=== PATIENT | female | born 1955 | race Caucasian/White ===

== ENCOUNTER 2016-05-15 07:44 | Emergency (ER) | payer OTHER, MEDICARE ==
[~2016-05-15] VITALS: Ht 167.6 cm; Wt 74.8 kg
[~2016-05-15 07:44] MED LIST: ALBUTEROL0.09 MG/A1 INH; ALTACE5 M2 PO; ALTOPREV PO; AMOXIL 875 MG875 MG PO; ATIVAN1 MG PO; LEVAQUIN500 MG PO; LEVEMIR FL100 UNIT/1 SC; METFORMIN HCL1000 M2 PO; METHIMAZOLE5 M1 PO; OMNARIS12.5 GM NAS; OXYCODONE5 MG PO; PANTOPRAZOLE SO40 M1 PO; PREDNISONE 10MG10 M1 PO; PREDNISONE20 MG PO; SANDOSTATIN50 MCG/ML IM; TESSALON PERLE100 MG PO; XOPENEX HFA15 GM INH
--- NOTE | 2016-05-15 08:22 | ED SKIN/ALLERGY COMPLAINT ---
History of Present Illness General Chief Complaint: Skin Rash/ Abcess Stated Complaint: HIVES Source: patient Exam Limitations: no limitations Vital Signs & Intake/Output Vital Signs & Intake/Output Vital Signs Date Time Temp Pulse Resp B/P Pulse O2 O2 Flow FiO2 Ox Delivery Rate 05/15 0751 97.4 85 16 156/78 987 Room Air Allergies Coded Allergies: MDX - Cephalosporin (CEPHALOSPORIN) (Severe, ANAPHYLAXIS 10/04/14) Reconcile Medications Ciclesonide (Omnaris) 50 MCG SPRAY.PUMP 2 SPRAY FREDY PRN SINUSES (Reported) Hydroxyzine Pamoate (Vistaril) 50 MG CAPSULE 1 CAP PO TID PRN URTICARIA Insulin Detemir (Levemir Flextouch) 100 UNIT/ML (3 ML) INSULN.PEN 14 UNITS SC QAM DIABETES (Reported) Levalbuterol Tartrate (Xopenex HFA) 45 MCG/ACTUATION HFA.AER.AD 2 PUF INH Q4-6 PRN PRN ASTHMA (Reported) Levofloxacin (Levaquin) 500 MG TABLET 1 TAB PO QDAY BRONCHITIS Lorazepam (Ativan) 1 MG TAB 1 TAB PO PRN ANXIETY (Reported) Lovastatin (Mevacor) 20 MG TABLET 60 MG PO QPM CHOLESTEROL (Reported) METFORMIN HCL (Metformin HCl ER) 1,000 MG TAB.ER.24 1.5 TAB PO AD DIABETES ( Reported) Methimazole 5 MG TABLET 0.5 TAB PO DAILY THYROID (Reported) Octreotide Acetate (Sandostatin) (Unknown Strength) AMPUL (Unknown Dose) IM Q30D CANCER-NEUROENDOCRINE (Reported) Oxycodone Hydrochloride (Oxycodone) 5 MG TAB 2-3 TAB PO QPM PAIN (Reported) Pantoprazole Sodium 40 MG TABLET.DR 1 TAB PO QPM GI (Reported) Prednisone 20 MG TABLET 2 TAB PO QDAY BRONCHITIS Ramipril (Altace) 5 MG CAPSULE 1 CAP PO DAILY PROTECT KIDNEYS (Reported) Triage Note: PT STATES SHE HAS CA AND DR. APODACA TOLD HER THAT "IT'S LIKE SHE IS ALLERGIC TO HERSELF". PT STATES SHE NOTICES SHE HAD HIVES THIS AM AND SHE HAS BEEN PUTTING CORTISONE CREAM ON IT FOR THE PAST WEEK. PT STATES SHE DOES HAVE ANAPHALACSIS AT TIMES. PT HAS NO DIFFICULTY BREATHING AT THIS TIME. PT STATES SHE TOOK BENADRYL LAST NIGHT PRIOR TO GOING TO BED AND STATES THIS AM THE HIVES GOT WORSE. Triage Nurses Notes Reviewed? 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 She states this morning she was worried she might develop anaphylaxis. She states she took Benadryl last night which helped with the itching but the hives are still there. She saw her oncologist Dr. Larkin in the office last week and he told her it was part of her cancer diagnosis to have reactions like this. She states that she also had an episode of coughing up green phlegm is worried that she might develop pneumonia. Patient is still an active daily smoker. Past History Travel History Traveled to [place] past 21 day No Medical History Any Pertinent Medical History? 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 No Review of Systems Review of Systems Constitutional: Denies: chills, fever. EENTM: Denies: throat pain. Respiratory: Reports: short of breath. Denies: cough. Cardiovascular: Denies: chest pain, palpitations, peripheral edema. GI: Denies: abdominal pain, diarrhea, vomiting. Genitourinary: Reports: no symptoms. Musculoskeletal: Reports: no symptoms. Skin: Reports: rash. Neurological/Psychological: Reports: anxiety. Hematologic/Endocrine: Denies: bruising, bleeding, polyuria, polydipsia. Immunologic/Allergic: Denies: splenectomy. All Other Systems: Reviewed and Negative Physical Exam Physical Exam General Appearance: well developed/nourished, alert, awake, anxious, mild distress Head: atraumatic Eyes: Bilateral: PERRL, EOMI. Ears, Nose, Throat: normal pharynx, normal ENT inspection, hearing grossly normal Neck: normal inspection, supple Respiratory: normal breath sounds Cardiovascular: regular rate/rhythm Peripheral Pulses: 2+ radial (R), 2+ radial (L) Gastrointestinal: soft, non-tender Back: normal inspection Extremities: normal inspection, normal range of motion, no edema Neurologic/Psych: awake, alert, oriented x 3, normal mood/affect Skin: intact, normal color, warm/dry, rash Skin Problem Location: torso Skin Problem Character: urticarial Lymphatic: no anterior cervical steve Progress Differential Diagnosis: allergic reaction, SIDE EFFECTS OF CANCER TREATMENTS Plan of Care: Orders Procedure Date/time Status XRY-CHEST XRAY, PA AND LATERAL 05/15 820 Active Diagnostic Imaging: Viewed by Me: Radiology Read. Discussed w/RAD: Radiology Read. Comments: PATIENT: TOMER PETERS PRESENT AGE: 61 PATIENT ACCOUNT NO: [id number] : 55 LOCATION: [facility] ORDERING PHYSICIAN: KANU PADILLA MD SERVICE DATE: 05/15/16 EXAM TYPE: RAD - XRY-CHEST XRAY, PA AND LATERAL EXAMINATION: XR CHEST CLINICAL INFORMATION: Cough, green sputum. History of neuroendocrine cancer. Rule out pneumonia. COMPARISON: 10/04/2014. TECHNIQUE: PA and lateral views of the chest were obtained. FINDINGS: The cardiac and mediastinal silhouettes are normal in appearance. There is mild peribronchial thickening. The lungs and pleural spaces are clear. Left cervical rib is redemonstrated synostosis to the left first thoracic rib. IMPRESSION: No acute cardiopulmonary abnormalities demonstrated. DICTATED BY: BRUCE GARCIA MD DATE/TIME DICTATED:05/15/16851 CUT ROLL MACHINE OFFBEARER:CORRINE DATE/TIME TRANSCRIBED:05/15/16851 CONFIDENTIAL, DO NOT COPY WITHOUT APPROPRIATE AUTHORIZATION. <Electronically signed in Other Vendor System> SIGNED BY: BRUCE GARCIA MD 05/15/16857 Departure Departure Time of Disposition: 937 Disposition: HOME OR SELF CARE Condition: Stable Clinical Impression Primary Impression: Urticaria Referrals: ANUM DESAI MD (PCP/Family) Referred to [facility] as new patient No Additional Instructions: Take the Atarax as directed. Follow-up with your oncologist in the office. Return to ER as needed. Your chest x-ray was normal. Please stop smoking. Departure Forms: Customer Survey General Discharge Information Prescriptions: Current Visit Scripts Hydroxyzine Pamoate (Vistaril) 1 CAP PO TID PRN URTICARIA #30 CAP
--- NOTE | 2016-05-15 08:58 | RADIOLOGY REPORT ---
EXAMINATION: XR CHEST CLINICAL INFORMATION: Cough, green sputum. History of neuroendocrine cancer. Rule out pneumonia. COMPARISON: 10/04/2014. TECHNIQUE: PA and lateral views of the chest were obtained. FINDINGS: The cardiac and mediastinal silhouettes are normal in appearance. There is mild peribronchial thickening. The lungs and pleural spaces are clear. Left cervical rib is redemonstrated synostosis to the left first thoracic rib. IMPRESSION: No acute cardiopulmonary abnormalities demonstrated.
[2016-05-15] MEDS ORDERED: VISTARIL50 M1 PO (09:39)
[2016-05-15 09:43] VITALS: BP 136/84
== END 2016-05-15 10:03 ==
LOC: ERH 07:44
DX: L50.9 Urticaria, unspecified (principal)

== ENCOUNTER 2016-09-30 20:11 | Emergency (ER) | payer OTHER, MEDICARE ==
[~2016-09-30 20:11] MED LIST changes: +VISTARIL50 M1 PO
--- NOTE | 2016-09-30 20:15 | ED INFLUENZA/URI COMPLAINT ---
History of Present Illness General Chief Complaint: Dyspnea (COPD, CHF, Other) Stated Complaint: BIBA SOB W/ CONGESTION Source: patient, family, old records Exam Limitations: no limitations Vital Signs & Intake/Output Vital Signs & Intake/Output Vital Signs Date Time Temp Pulse Resp B/P B/P Pulse O2 O2 Flow FiO2 Mean Ox Delivery Rate 09/30 2252 98.0 82 18 118/84 97 Room Air 10/01 2039 97 09/30 2029 98 Room Air 09/30 2025 97.9 84 16 156/74 98 Room Air Allergies Coded Allergies: Cephalosporins (Severe, ANAPHYLAXIS 09/30/16) Reconcile Medications Alprazolam (Xanax XR) 0.5 MG TAB.ER.24H 1 TAB PO TID PRN ANXIETY (Reported) Canagliflozin (Invokana) 100 MG TABLET 1 TAB PO DAILY DM (Reported) Ciclesonide (Omnaris) 50 MCG SPRAY.PUMP 2 SPRAY FREDY PRN SINUSES (Reported) Clotrimazole 10 MG KARLENE 1 TAB PO 5 TIMES A DAY PRN THRUSH (Reported) Epinephrine (Epipen) 0.3 MG/0.3 ML AUTO.INJCT 1 UNIT IM ONCE PRN ANAPHYLAXIS (Reported) Fluticasone Propionate 50 MCG/ACTUATION SPRAY.SUSP 2 SPRAY NASB DAILY ASTHMA (Reported) Hydroxyzine HCl 10 MG TABLET 1 TAB PO DAILY (Reported) Insulin Detemir (Levemir Flextouch) 100 UNIT/ML (3 ML) INSULN.PEN 14 UNITS SC QAM DM (Reported) Levalbuterol Tartrate (Xopenex Hfa) 45 MCG/ACTUATION HFA.AER.AD 2 PUF INH Q4-6 PRN PRN ASTHMA (Reported) Loratadine (Claritin) 10 MG CAPSULE 1 TAB PO TID ALLERGIES (Reported) Lovastatin (Altoprev) 60 MG TAB.ER.24H 1 TAB PO QPM CHOLESTEROL (Reported) Metformin HCl (Metformin HCl ER) 1,000 MG TAB.ER.24 1 TAB PO DAILY DM ( Reported) Methimazole 5 MG TABLET 0.5 TAB PO DAILY THYROID (Reported) Methylprednisolone. (Medrol) 4 MG TAB.DS.PK 1 DP PO AD INFLAMMATION 6 on day 1 then reduce by one tablet daily until gone Pantoprazole Sodium 40 MG TABLET.DR 1 TAB PO QPM GI (Reported) Ramipril (Altace) 5 MG CAPSULE 1 CAP PO DAILY PROTECT KIDNEYS (Reported) Triage Nurses Notes Reviewed? yes Onset: Abrupt Duration: intermittent Timing: multiple episodes today Severity: severe Severity Numbers: 7 HPI: Patient is a 61-year-old female with past medical history of diabetes, hyperthyroidism, hyperlipidemia, anxiety, asthma, allergies, neuro endocrine carcinoma who presents emergency room and was today patient woke up in her normal state of health and wished this morning patient had acute onset of heart palpitations would made patient anxious and short of breath patient took treatments of albuterol puffer and had complete resolution of symptoms. Patient states that she was outside all day however 2 hours prior to arrival patient had acute onset of again heart palpitations which made patient anxious and short of breath patient also felt chest congestion and head congestion and allergy like symptoms where she was brought in by ambulance. Patient is ever day smoker. Denies any fevers chills chest pain arm pain jaw pain nausea vomiting leg swelling hemoptysis. (SUNI BARBOUR) Past History Travel History Traveled to [place] past 21 day No Medical History Any Pertinent Medical History? 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 No (SUNI BARBOUR) Review of Systems Review of Systems Constitutional: Denies: chills, fever. EENTM: Reports: no symptoms. Respiratory: Reports: see HPI, short of breath. Cardiovascular: Reports: see HPI, palpitations. Denies: chest pain. GI: Reports: no symptoms. Genitourinary: Reports: no symptoms. Musculoskeletal: Reports: no symptoms. Skin: Reports: no symptoms. Neurological/Psychological: Reports: no symptoms. Hematologic/Endocrine: Reports: no symptoms. Immunologic/Allergic: Reports: no symptoms. All Other Systems: Reviewed and Negative (SUNI BARBOUR) Physical Exam Physical Exam General Appearance: anxious Ears, Nose, Throat: normal ENT inspection, moist mucous membrane, hearing grossly normal Comments: HEENT: Normal EENT exam, extraocular motion intact, no nystagmus. Pupils equally round and reactive to light and accommodation. Nose is atraumatic. External auditory canal and Tympanic membranes clear. Pharynx normal. No swelling or edema. Neck: Supple, no lymphadenopathy, normal range of motion without pain or tenderness Back: Nontender, no CVA tenderness. Cardiovascular: Regular rate and rhythms no murmurs rubs or gallops, normal JVP Respiratory: Chest nontender. No respiratory distress. Bilateral mild expiratory wheezing Abdomen: Soft, nontender nondistended, no appreciable organomegaly. Normal bowel sounds. No ascites Extremity: No edema, no calf tenderness to palpation, normal and equal pulses. Neuro: Alert oriented x3, motor sensory normal, cranial nerves II through XII grossly intact. Skin: No appreciable rash on exposed skin, skin is warm and dry. Psych: Mood and affect is normal, memory and judgment is normal. Core Measures Severe Sepsis Present: No Septic Shock Present: No (DINO ELLISON,SUNI) Progress Differential Diagnosis: influenza, meningitis, neutropenia, otitis, pneumonia, pharyngitis, sinusitis Plan of Care: Orders Procedure Date/time Status THYROID STIMULATING HORMONE 09/30 2053 Complete FREE T4 09/30 2053 Complete Telemetry/Airport Representative 09/30 2033 Active TROPONIN LEVEL 09/30 2017 Complete D-DIMER 09/30 2017 Complete COMPREHENSIVE METABOLIC PANEL 09/30 2017 Complete CBC WITHOUT DIFFERENTIAL 09/30 2017 Complete EKG 09/30 2017 Active Laboratory Tests 09/30/162053: Anion Gap 11, Estimated GFR > 60, BUN/Creatinine Ratio 20.0, Glucose 163 H, Calcium 9.6, Total Bilirubin 0.3, AST 17, ALT 18, Alkaline Phosphatase 82, Troponin I < 0.01, Total Protein 7.1, Albumin 4.1, Globulin 3.0, Albumin/ Globulin Ratio 1.4, TSH 0.350, Free T4 1.17, D-Dimer 664 H, CBC w Diff NO MAN DIFF REQ, RBC 4.40, MCV 84.7, MCH 27.5, RDW 15.6 H, MPV 8.1, Gran % 60.2, Lymphocytes % 26.9, Monocytes % 10.8 H, Eosinophils % 1.6, Basophils % 0.5, Absolute Granulocytes 5.9, Absolute Lymphocytes 2.6, Absolute Monocytes 1.1 H, Absolute Eosinophils 0.2, Absolute Basophils 0, PUBS MCHC 32.5 L 09/30/162033: TSH Cancelled, Free T4 Cancelled 09/30/2016 9:19:01 PM after nebulizer was administered patient had complete resolution of wheezing noted on reexamination. Oxygen saturation 99% patient no respiratory distress telemetry monitored noted to be normal sinus rhythm 88 bpm Patient also is resting comfortably no apparent distress When discussing with patient of an elevated d-dimer and CT angiogram she became extremely anxious to have this imaged performance where she was given 1 mg of Ativan. (SUNI BARBOUR) Diagnostic Imaging: Viewed by Me: CT Scan. Initial ED EK BPM, NSR Hand-Off Endorsed To: IVANIA HAYWOOD DO (TBS) Endorsed Time: 2342 Pending: CT Comments: Discussed this with Dr. HAYWOOD for concerns of hand for which patient disposition plan is pending a CT angiogram. Patient currently is resting comfortably in no apparent distress. Patient was strongly advised to discontinue smoking and to follow-up with disposition and plan dictated and discharge instructions (SUNI BARBOUR) Departure Departure Disposition: HOME OR SELF CARE Condition: Stable Clinical Impression Primary Impression: Palpitations Secondary Impressions: COPD (chronic obstructive pulmonary disease) Referrals: IDANIA SCHROEDER,RAINA DESAI MD,ANUM (PCP/Family) JUVENTINO SCHROEDER,YESSI Additional Instructions: As discussed please discontinue smoking. Begin the prescription of Medrol Dosepak for inflammation Continue previous medications especially YOUR breathing medications. On Monday please follow up and establish pharmacist hospital Dr. Panda and grain oilseed or pasture farm worker Dr. Barber for your symptoms. If symptoms worsen return to emergency room Departure Forms: Customer Survey General Discharge Information Prescriptions: Current Visit Scripts Methylprednisolone. (Medrol) 1 DP PO AD #1 DP 6 on day 1 then reduce by one tablet daily until gone (SUNI BARBOUR) Departure Comments 10/01/16 12:12 am The patient was signed out to me by Suni Adrian to follow the CTA. CTA is negative for pulmonary embolism. Liver densities are unchanged. She will follow-up with her primary care doctor this week or return to the emergency department if worse.PATIENT: TOMER PETERS PRESENT AGE: 61 PATIENT ACCOUNT NO: [id number] : 55 LOCATION: [facility] ORDERING PHYSICIAN: SUNI ELLISON SERVICE DATE: 09/30/16 EXAM TYPE: CAT - CTA CHEST-PULMONARY EMBOLISM EXAMINATION: CT ANGIOGRAM CHEST WITH AND WITHOUT CONTRAST (CT PULMONARY ANGIOGRAM FOR PE) CLINICAL INFORMATION: Shortness of breath. Elevated D-dimer. History of cancer. Pulmonary embolism symptoms. COMPARISON: CT chest and abdomen 09/19/2016. Chest x-ray May 2016. TECHNIQUE: Prior to contrast administration, noncontrast localization images were obtained. Subsequently, multidetector volumetric imaging was performed from the thoracic inlet to below the diaphragms following the administration of 50 mL Optiray 350 intravenous contrast. No contrast reaction reported. Sagittal, coronal, and MIP oblique sagittal reformatted images were obtained on the CT workstation, uploaded to PACS, and reviewed. Total exam dose-length product 269 mGy-cm. FINDINGS: QUALITY OF STUDY/CONTRAST BOLUS: Satisfactory PULMONARY ARTERIES: No central or segmental pulmonary emboli. THORACIC AORTA: Mild to moderate calcific atherosclerotic disease. LUNG: Minimal groundglass opacity noted within the medial aspect of the right lobe of the liver seen on axial image 50\E\62 series 3. PLEURA: No pleural effusion or pneumothorax. MEDIASTINUM: Normal heart size. No pericardial effusion. No hilar or mediastinal lymphadenopathy. No evidence of septal bowing or right heart strain. Heterogeneous-appearing thyroid, unchanged. CHEST WALL/AXILLA: No axillary or internal mammary lymphadenopathy. OSSEOUS STRUCTURES: Mild spondylosis of the dorsal spine manifested by endplate osteophyte formation at multiple disc levels. No change. UPPER ABDOMEN: Multiple small hypodense liver lesions noted throughout the visualized portion of the liver, unchanged. The largest cysts in the left lobe also most likely reflect simple cysts. IMPRESSION: 1. No evidence for pulmonary embolism. 2. Minimal groundglass opacity in the medial aspect of the right lower lobe most likely reflects atelectasis rather than an evolving infiltrate or pneumonia. 3. Heterogeneous-appearing thyroid, unchanged. 4. Persistent unchanged multiple low-density lesion is noted throughout much of the liver visualized some of which are too small to clearly characterize. The larger masses do appear to reflect benign simple cysts. DICTATED BY: JESUS TORREZ MD DATE/TIME DICTATED:09/30/162256 MOLD DESIGNER:CORRINE DATE/TIME TRANSCRIBED:09/30/162256 CONFIDENTIAL, DO NOT COPY WITHOUT APPROPRIATE AUTHORIZATION. <Electronically signed in Other Vendor System> SIGNED BY: JESUS TORREZ MD 10/01 0008 (IVANIA HAYWOOD DO)
[2016-09-30] MEDS ORDERED: CLOTRIMAZOLE10 M1 PO (20:31)
[2016-09-30] MEDS ORDERED: EPIPEN0.3 MG/0.1 IM (20:31)
[2016-09-30] MEDS ORDERED: CLARITIN10 M3 PO (20:32)
[2016-09-30] MEDS ORDERED: HYDROXYZINE HCL10 M1 PO (20:33)
[2016-09-30] MEDS ORDERED: FLUTICASONE PRO16 GM NASB (20:33)
[2016-09-30] MEDS ORDERED: XANAX XR0.5 M1 PO (20:35)
[2016-09-30] MEDS ORDERED: INVOKANA100 M1 PO (20:37)
[2016-09-30] MEDS ORDERED: METFORMIN HCL500 M2 PO (20:37)
[2016-09-30 21:05] LABS: ABSOLUTE BASOPHIL COUNT 0 /CUMM (0.0-0.2); ABSOLUTE EOSINOPHIL COUNT 0.2 /CUMM (0.0-0.7); ABSOLUTE GRANULOCYTE CT 5.9 /CUMM (1.4-6.5); ABSOLUTE LYMPH COUNT 2.6 /CUMM (1.2-3.4); ABSOLUTE MONOCYTE COUNT 1.1 /CUMM (0.10-0.60); BASOPHIL % 0.5 % (0.0-2.0); EOSINOPHIL % 1.6 % (0-5); GRANULOCYTE % 60.2 % (42.2-75.2); HEMATOCRIT 37.3 % (37-47); MEAN CORPUSCULAR HGB 27.5 PG (27.0-31.0); MEAN CORPUSCULAR HGB CONC 32.5 G/DL (33.0-37.0); MEAN CORPUSCULAR VOLUME 84.7 FL (81.0-99.0); MEAN PLATELET VOLUME 8.1 FL (7.4-10.4); PLATELET COUNT 304 /CUMM (130-400); RBC DISTRIBUTION WIDTH 15.6 % (11.5-14.5); WHITE BLOOD CELL COUNT 9.8 /CUMM (4.8-10.8)
[2016-09-30 22:53] VITALS: BP 118/84
[2016-09-30] MEDS ORDERED: MEDROL4 M2 PO (23:26)
--- NOTE | 2016-10-01 00:08 | CT SCAN REPORT ---
EXAMINATION: CT ANGIOGRAM CHEST WITH AND WITHOUT CONTRAST (CT PULMONARY ANGIOGRAM FOR PE) CLINICAL INFORMATION: Shortness of breath. Elevated D-dimer. History of cancer. Pulmonary embolism symptoms. COMPARISON: CT chest and abdomen 09/19/2016. Chest x-ray May 2016. TECHNIQUE: Prior to contrast administration, noncontrast localization images were obtained. Subsequently, multidetector volumetric imaging was performed from the thoracic inlet to below the diaphragms following the administration of 50 mL Optiray 350 intravenous contrast. No contrast reaction reported. Sagittal, coronal, and MIP oblique sagittal reformatted images were obtained on the CT workstation, uploaded to PACS, and reviewed. Total exam dose-length product 269 mGy-cm. FINDINGS: QUALITY OF STUDY/CONTRAST BOLUS: Satisfactory PULMONARY ARTERIES: No central or segmental pulmonary emboli. THORACIC AORTA: Mild to moderate calcific atherosclerotic disease. LUNG: Minimal groundglass opacity noted within the medial aspect of the right lobe of the liver seen on axial image 50\E\62 series 3. PLEURA: No pleural effusion or pneumothorax. MEDIASTINUM: Normal heart size. No pericardial effusion. No hilar or mediastinal lymphadenopathy. No evidence of septal bowing or right heart strain. Heterogeneous-appearing thyroid, unchanged. CHEST WALL/AXILLA: No axillary or internal mammary lymphadenopathy. OSSEOUS STRUCTURES: Mild spondylosis of the dorsal spine manifested by endplate osteophyte formation at multiple disc levels. No change. UPPER ABDOMEN: Multiple small hypodense liver lesions noted throughout the visualized portion of the liver, unchanged. The largest cysts in the left lobe also most likely reflect simple cysts. IMPRESSION: 1. No evidence for pulmonary embolism. 2. Minimal groundglass opacity in the medial aspect of the right lower lobe most likely reflects atelectasis rather than an evolving infiltrate or pneumonia. 3. Heterogeneous-appearing thyroid, unchanged. 4. Persistent unchanged multiple low-density lesion is noted throughout much of the liver visualized some of which are too small to clearly characterize. The larger masses do appear to reflect benign simple cysts.
[2016-10-01] MEDS ORDERED: AVELOX400 M1 PO (00:20)
[2016-10-02] MEDS ORDERED: METFORMIN HCL1000 M1 PO (17:40)
[2016-10-02] MEDS ORDERED: REPAGLINIDE0.5 M1 PO (17:40)
[2016-10-02] MEDS ORDERED: ALPRAZOLAM0.5 M4 PO (17:42)
[2016-10-02] MEDS ORDERED: SYMBICORT 16010.2 GM INH (17:45)
== END 2016-10-01 00:53 ==
LOC: ERH 20:11
PROVIDERS: Physician Assistant
DX: J44.9 Chronic obstructive pulmonary disease, unspecified (principal); F17.210 Nicotine dependence, cigarettes, uncomplicated; R06.00 Dyspnea, unspecified
CPT/HCPCS: 1263; 93005; 93010; 96374; 96375; J2930

== ENCOUNTER 2016-10-02 15:27 | Emergency (ER) | payer OTHER, MEDICARE ==
[~2016-10-02] VITALS: Ht 167.6 cm; Wt 71.7 kg
[~2016-10-02 15:27] MED LIST changes: +AVELOX400 M1 PO; +CLARITIN10 M3 PO; +CLOTRIMAZOLE10 M1 PO; +EPIPEN0.3 MG/0.1 IM; +FLUTICASONE PRO16 GM NASB; +HYDROXYZINE HCL10 M1 PO; +INVOKANA100 M1 PO; +MEDROL4 M2 PO; +METFORMIN HCL500 M2 PO; +XANAX XR0.5 M1 PO
--- NOTE | 2016-10-02 16:24 | ED NEURO DEFICIT/STROKE ---
History of Present Illness General Chief Complaint: Neuro Symptoms/ Deficit Stated Complaint: LEFT SIDED FACIAL NUMBNESS Source: patient, family, old records Exam Limitations: no limitations Vital Signs & Intake/Output Vital Signs & Intake/Output ED Intake and Output 10/03 0000 10/02 1200 Intake Total 0 Output Total Balance 0 Intake, Oral 0 Patient 158 lb Weight Weight Reported by Patient Measurement Method Allergies Coded Allergies: Cephalosporins (Severe, ANAPHYLAXIS 10/02/16) Uncoded Allergies: METAL (FLUSH, HIVES 10/02/16) Reconcile Medications Alprazolam 0.5 MG TABLET 1 TAB PO TID ANXIETY (Reported) Budesonide/Formoterol Fumarate (Symbicort 160-4.5 Mcg Inhaler) 160 MCG-4.5 MCG/ ACTUATION HFA.AER.AD 1 PUF INH BID PRN ASTHMA (Reported) Canagliflozin (Invokana) 100 MG TABLET 1 TAB PO DAILY DM (Reported) Ciclesonide (Omnaris) 50 MCG SPRAY.PUMP 2 SPRAY FREDY PRN SINUSES (Reported) Clotrimazole 10 MG KARLENE 1 TAB PO 5 TIMES A DAY PRN THRUSH (Reported) Epinephrine (Epipen) 0.3 MG/0.3 ML AUTO.INJCT 1 UNIT IM ONCE PRN ANAPHYLAXIS (Reported) Fluticasone Propionate 50 MCG/ACTUATION SPRAY.SUSP 2 SPRAY NASB PRN ALLERGIES (Reported) Hydroxyzine HCl 10 MG TABLET 1 TAB PO DAILY ITCHING (Reported) Insulin Detemir (Levemir Flextouch) 100 UNIT/ML (3 ML) INSULN.PEN 14 UNITS SC QAM DM (Reported) Levalbuterol Tartrate (Xopenex Hfa) 45 MCG/ACTUATION HFA.AER.AD 2 PUF INH Q3H PRN ASTHMA (Reported) Loratadine (Claritin) 10 MG CAPSULE 1 TAB PO TID ALLERGIES (Reported) Lovastatin (Altoprev) 60 MG TAB.ER.24H 1 TAB PO QPM CHOLESTEROL (Reported) Metformin HCl (Metformin HCl ER) 1,000 MG TAB.ER.24 1 TAB PO DAILY DM ( Reported) Metformin HCl 1,000 MG TABLET 1 TAB PO QPM DM (Reported) Methimazole 5 MG TABLET 0.5 TAB PO DAILY THYROID (Reported) Methylprednisolone. (Medrol) 4 MG TAB.DS.PK 1 DP PO AD INFLAMMATION 6 on day 1 then reduce by one tablet daily until gone Moxifloxacin HCl (Avelox) 400 MG TABLET 1 TAB PO DAILY bronchitis Pantoprazole Sodium 40 MG TABLET.DR 1 TAB PO QPM GI (Reported) Ramipril (Altace) 5 MG CAPSULE 1 CAP PO DAILY PROTECT KIDNEYS (Reported) Repaglinide 0.5 MG TABLET 1 TAB PO TID DM (Reported) Triage Note: PT TO ED FOR L SIDED FACIAL NUMBNESS/TINGLING THAT STARTED THIS MORNING AROUND 1000, THEN WENT AWAY AND THEN CAME BACK AROUND 1400. PT SEEN IN THIS ED ON MONDAY AND WAS WORKED UP FOR PE WHICH WAS NEGATIVE. PT HX OF NEUROENDOCRINE CANCER, CURRENTLY ON CHEMO. ALL NEUROS INTACT, NO FACIAL DROOP, OR SLURRED SPEECH NOTED. Triage Nurses Notes Reviewed? yes Onset: Abrupt Duration: hour(s):, intermittent Timing: recent history Altered Sensations: left facial Vision Problem? No Glaucoma? No Baseline: alert, oriented x 3 HPI: 61-year-old female comes into emergency room with complaints of left-sided facial numbness is been going on since noon today intermittently. She denies any slurred speech confusion or headache. She denies any numbness or tingling to her left lower leg or left left upper extremity. She says she might have some mild tingling in her left pinky finger. She has no weakness anywhere on her body. She denies any vision changes. Denies any recent falls or trauma. She denies any gait abnormalities. Denies any vomiting fever or chills. Patient was seen here a few nights ago and was put on steroids for possible COPD. Nothing seems to make the symptoms better or worse. Patient comes in for further evaluation. (LOS MACIAS) Past History Travel History Traveled to [place] past 21 day No Medical History Any Pertinent Medical History? 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 No (LOS MACIAS) Review of Systems Review of Systems Constitutional: Reports: no symptoms. EENTM: Reports: no symptoms. Respiratory: Reports: no symptoms. Cardiovascular: Reports: no symptoms. GI: Reports: no symptoms. Genitourinary: Reports: no symptoms. Musculoskeletal: Reports: no symptoms. Skin: Reports: no symptoms. Neurological/Psychological: Reports: see HPI. Hematologic/Endocrine: Reports: no symptoms. Immunologic/Allergic: Reports: no symptoms. All Other Systems: Reviewed and Negative (LOS MACIAS) Physical Exam Physical Exam General Appearance: well developed/nourished, no apparent distress, alert, awake Head: atraumatic, normal appearance Eyes: Bilateral: normal appearance, PERRL, EOMI. Ears, Nose, Throat: normal ENT inspection, moist mucous membrane, hearing grossly normal Neck: normal inspection, full range of motion Respiratory: normal breath sounds, no respiratory distress Cardiovascular: regular rate/rhythm Gastrointestinal: soft, non-tender Back: normal inspection, normal range of motion Extremities: normal range of motion Psychiatric: awake, alert, oriented x 3 Cranial Nerves: normal hearing, normal speech, PERRL, cranial nerves 2-12 intact , gross sensation intact Coordination/Gait: normal finger to nose, normal gait Motor/Sensory: no motor/sensory deficits Skin: intact, normal color Core Measures CVA/TIA Diagnosis: No Severe Sepsis Present: No Septic Shock Present: No (LOS MACIAS) Progress Differential Diagnosis: acute glaucoma, Steele's Palsy, drug intoxication, electrolyte imbalance, encephalitis, hypoglycemia, intracranial Hem., intracranial mass/tumor, meningitis, migraine RENDON, seizure disorder, stroke, subarachnoid Hem., vertebrobasilar insuff. Plan of Care: Orders Procedure Date/time Status TROPONIN LEVEL 10/02 162 Complete LYME TITRE 10/02 162 Active COMPREHENSIVE METABOLIC PANEL 10/02 162 Complete CBC WITHOUT DIFFERENTIAL 10/02 1622 Complete EKG 10/02 162 Active Laboratory Tests 10/02/16 1638: Anion Gap 13, Estimated GFR 46 L, BUN/Creatinine Ratio 22.5, Glucose 158 H, Calcium 9.7, Total Bilirubin 0.4, AST 19, ALT 28, Alkaline Phosphatase 75, Troponin I < 0.01, Total Protein 7.6, Albumin 4.5, Globulin 3.1, Albumin/ Globulin Ratio 1.5, CBC w Diff NO MAN DIFF REQ, RBC 4.24, MCV 84.8, MCH 27.6, RDW 15.9 H, MPV 8.1, Gran % 81.7 H, Lymphocytes % 12.8 L, Monocytes % 5.2, Eosinophils % 0, Basophils % 0.3, Absolute Granulocytes 10.6 H, Absolute Lymphocytes 1.7, Absolute Monocytes 0.7 H, Absolute Eosinophils 0, Absolute Basophils 0, PUBS MCHC 32.6 L, Lyme Disease Antibody Pending Diagnostic Imaging: Viewed by Me: CT Scan. Discussed w/RAD: CT Scan. Radiology Impression: SERVICE DATE: 10/02/16 EXAM TYPE: CAT - CT HEAD WO IV CONTRAST EXAMINATION: CT HEAD WITHOUT CONTRAST CLINICAL INFORMATION: Left facial numbness COMPARISON: None TECHNIQUE: Contiguous axial imaging was performed from the skull base to vertex without intravenous administration of contrast. DLP: 614.97 mGy-cm FINDINGS: There is no evidence of acute intracranial hemorrhage or territorial infarction. No abnormal mass effect or midline shift is seen. Gaytan to white matter differentiation is well preserved. No extra-axial fluid collections are identified. The ventricles are normal in size. There is mild to moderate low-attenuation within the periventricular and subcortical white matter. The latter finding is slightly asymmetric on the right. A small area of low-attenuation is noted within the subcortical white matter of the right frontal lobe measuring 0.8 cm (image 16, series 3). The osseous structures and soft tissues are normal. The mastoid air cells and visualized portions of the paranasal sinuses are well aerated. IMPRESSION: No acute intracranial hemorrhage. Mild to moderate chronic small vessel ischemic change. DICTATED BY: RICCO CULP MD DATE/TIME DICTATED:10/02/161723 WWE WRESTLER:CORRINE Initial ED EKG: normal intervals, normal p-waves, normal sinus rhythm, RBBB Prior EKG: unchanged (LOS MACIAS) Departure Departure Disposition: HOME OR SELF CARE Condition: Stable Clinical Impression Primary Impression: Left facial numbness Referrals: ANUM DESAI MD (PCP/Family) Additional Instructions: Follow-up with your primary care doctor. Follow-up with neurologist. Have your creatinine rechecked. Return if any concerns worsening symptoms. Please go over all results of today's visit with your primary care doctor. Contact your primary care doctor to let them know you were here in the emergency room. There may be nonspecific findings which may not be related to your visit today here in the emergency room but may require further evaluation and chronic monitoring by your primary care doctor. If you had a laceration today the chance of foreign body always remains. You should follow-up with your primary care doctor for recheck in 3-5 days for a wound check. If you had an x-ray done there is a chance that a fracture could have been missed on initial read and you should follow-up with your primary care doctor for repeat x-rays if symptoms persist. If your blood pressure was elevated here in the emergency room please have rechecked by her primary care doctor within the next 48 hours by your primary care doctor. If you were prescribed a narcotic here in the emergency room or any type of controlled substances you're not allowed to drive while taking this medication or operate any type of heavy machinery. Narcotics can make you feel lightheaded dizziness nausea and can cause constipation. You may need to warehouse order picker a stool softener. Thank you for choosing [facility] emergency room. Please return to the emergency room immediately if you have any other concerns worsening of symptoms. Departure Forms: Customer Survey General Discharge Information Comments Patient clinically looks well. Nontoxic-appearing. In no apparent distress. Resting comfortably in room. Case discussed with Dr. Ornelas. Reevaluated multiple times. No neurological deficits. Gross sensation intact. Patient referred to neurologist. Lyme titer sent. Patient told to follow-up with primary care doctor. Return if any other concerns. Patient understands and agrees with plan of care. (BIJAL ELLISON,LOS) PA/BATTER OUT Co-Sign Statement Statement: ED Attending supervision documentation- [] I saw and evaluated the patient. I have also reviewed all the pertinent lab results and diagnostic results. I agree with the findings and the plan of care as documented in the PA's/BATTER OUT's documentation. [X] I have reviewed the ED Record and agree with the PA's/BATTER OUT's documentation. [] Additions or exceptions (if any) to the PAs/BATTER OUT's note and plan are summarized below: [] (CECILY SCHROEDER,NATANAEL Gomez)
[2016-10-02 17:06] LABS: ABSOLUTE BASOPHIL COUNT 0 /CUMM (0.0-0.2); ABSOLUTE EOSINOPHIL COUNT 0 /CUMM (0.0-0.7); ABSOLUTE GRANULOCYTE CT 10.6 /CUMM (1.4-6.5); ABSOLUTE LYMPH COUNT 1.7 /CUMM (1.2-3.4); ABSOLUTE MONOCYTE COUNT 0.7 /CUMM (0.10-0.60); BASOPHIL % 0.3 % (0.0-2.0); EOSINOPHIL % 0 % (0-5); GRANULOCYTE % 81.7 % (42.2-75.2); HEMATOCRIT 35.9 % (37-47); MEAN CORPUSCULAR HGB 27.6 PG (27.0-31.0); MEAN CORPUSCULAR HGB CONC 32.6 G/DL (33.0-37.0); MEAN CORPUSCULAR VOLUME 84.8 FL (81.0-99.0); MEAN PLATELET VOLUME 8.1 FL (7.4-10.4); PLATELET COUNT 331 /CUMM (130-400); RBC DISTRIBUTION WIDTH 15.9 % (11.5-14.5); RED BLOOD CELL CT 4.24 /CUMM (4.20-5.40)
--- NOTE | 2016-10-02 17:33 | CT SCAN REPORT ---
EXAMINATION: CT HEAD WITHOUT CONTRAST CLINICAL INFORMATION: Left facial numbness COMPARISON: None TECHNIQUE: Contiguous axial imaging was performed from the skull base to vertex without intravenous administration of contrast. DLP: 614.97 mGy-cm FINDINGS: There is no evidence of acute intracranial hemorrhage or territorial infarction. No abnormal mass effect or midline shift is seen. Gaytan to white matter differentiation is well preserved. No extra-axial fluid collections are identified. The ventricles are normal in size. There is mild to moderate low-attenuation within the periventricular and subcortical white matter. The latter finding is slightly asymmetric on the right. A small area of low-attenuation is noted within the subcortical white matter of the right frontal lobe measuring 0.8 cm (image 16, series 3). The osseous structures and soft tissues are normal. The mastoid air cells and visualized portions of the paranasal sinuses are well aerated. IMPRESSION: No acute intracranial hemorrhage. Mild to moderate chronic small vessel ischemic change.
[2016-10-02] MEDS ORDERED: METFORMIN HCL1000 M1 PO (17:40)
[2016-10-02] MEDS ORDERED: REPAGLINIDE0.5 M1 PO (17:40)
[2016-10-02] MEDS ORDERED: ALPRAZOLAM0.5 M4 PO (17:42)
[2016-10-02] MEDS ORDERED: SYMBICORT 16010.2 GM INH (17:45)
[2016-10-02 18:30] VITALS: BP 139/65
== END 2016-10-02 19:00 ==
LOC: ERH 15:27
PROVIDERS: Physician Assistant Medical
DX: R20.0 Anesthesia of skin (principal)
CPT/HCPCS: 86618; 93005; 93010

== ENCOUNTER 2017-12-23 17:44 | Emergency (ER) | payer OTHER, MEDICARE ==
[~2017-12-23] VITALS: Ht 167.6 cm; Wt 72.6 kg
[~2017-12-23 17:44] MED LIST changes: +ALBUTEROL1.25 MG/1 INH/SOL; +ALPRAZOLAM0.5 M4 PO; +DELTASONE20 MG PO; +METFORMIN HCL1000 M1 PO; +REPAGLINIDE0.5 M1 PO; +SYMBICORT 16010.2 GM INH; +ZITHROMAX250 M2 PO
[2017-12-23 18:32] LABS: ABSOLUTE BASOPHIL COUNT 0.1 /CUMM (0.0-0.2); ABSOLUTE EOSINOPHIL COUNT 0.1 /CUMM (0.0-0.7); ABSOLUTE GRANULOCYTE CT 5.1 /CUMM (1.4-6.5); ABSOLUTE MONOCYTE COUNT 1.1 /CUMM (0.10-0.60); BASOPHIL % 0.7 % (0.0-2.0); EOSINOPHIL % 1.5 % (0-5); GRANULOCYTE % 53.8 % (42.2-75.2); HEMATOCRIT 35.8 % (37-47); MEAN CORPUSCULAR HGB 27.4 PG (27.0-31.0); MEAN PLATELET VOLUME 8.6 FL (7.4-10.4); PLATELET COUNT 290 /CUMM (130-400); RBC DISTRIBUTION WIDTH 17.3 % (11.5-14.5); RED BLOOD CELL CT 4.32 /CUMM (4.20-5.40); WHITE BLOOD CELL COUNT 9.5 /CUMM (4.8-10.8)
--- NOTE | 2017-12-23 20:28 | CT SCAN REPORT ---
EXAMINATION: CT ABDOMEN AND PELVIS WITH CONTRAST CLINICAL INFORMATION: Diffuse low back pain and upper abdominal pain. Known metastatic carcinoid carcinoma COMPARISON: CT 09/18/2017, CT 06/11/2013 TECHNIQUE: Multidetector volumetric imaging was performed of the abdomen and pelvis following IV administration of 95 mL of Optiray 320 intravenous contrast. Sagittal and coronal reformatted images were obtained on the technologist's workstation. DLP: 298 mGy-cm FINDINGS: LUNG BASES: The visualized lung bases are unremarkable. LIVER, GALLBLADDER, AND BILIARY TREE: The liver enhances homogeneously. Multiple hypoattenuating lesions are demonstrated. These appear stable and distribution and size compared to the 2013 study allowing for technical differences between examinations. The largest area is located within the right lobe of the liver measuring approximately 3.2 cm (image 18, series 2. A large cystic areas identified within segment 4A of the liver measuring 2.4 cm. No intrahepatic biliary dilatation. The gallbladder is unremarkable with no evidence of radiopaque gallstones, gallbladder wall thickening, or obvious pericholecystic inflammatory changes. PANCREAS: There is little pancreatic tissue visualized on the current study. The portion of the head and uncinate process of the pancreas identified enhances homogeneously. SPLEEN: Unremarkable. ADRENAL GLANDS: Known bilateral adrenal adenomas, stable from prior. KIDNEYS AND URETERS: The kidneys are normal in size, shape, and attenuation. No hydronephrosis, hydroureter, or calculi seen. No perinephric stranding. BLADDER: Unremarkable. GASTROINTESTINAL TRACT: A dominant hypodense mass with rim calcification in the left upper quadrant measures 8.2 cm in size, previously 8.2 cm in size and 2014. An adjacent smaller hypodense lesion with rim calcification along the right anterior aspect measures 1.8 cm and is also stable compared to prior. Dense stool is present throughout the colon. A normal appendix is seen in the right lower quadrant. There are no dilated loops of small or large bowel. No intraabdominal free air or free fluid. ABDOMINAL WALL: No significant hernia is appreciated. LYMPH NODES: Normal. VASCULAR: Mild atherosclerotic calcific disease. Normal caliber aorta. PELVIC VISCERA: The uterus appears surgically absent. No adnexal mass. OSSEOUS STRUCTURES: Mild multilevel degenerative changes of lower thoracic and lumbar spine. IMPRESSION: No acute intra-abdominal or pelvic findings. Essentially stable exam compared to 2013 allowing for some technical differences between studies. Specific findings as detailed above.
--- NOTE | 2017-12-23 20:57 | ED GI/GU/ABDOMINAL COMPLAINT ---
History of Present Illness General Chief Complaint: General Adult Stated Complaint: PT IS HAVING BACK PAIN AND HAS CANCER Source: patient Exam Limitations: no limitations Vital Signs & Intake/Output Vital Signs & Intake/Output Vital Signs Date Time Temp Pulse Resp B/P B/P Pulse O2 O2 Flow FiO2 Mean Ox Delivery Rate 12/23 2112 98.1 57 18 167/70 98 Room Air 12/23 2050 97.8 84 16 154/78 98 Room Air 12/23 1950 98.2 65 16 153/88 96 Room Air 12/23 1950 Room Air ED Intake and Output 12/24 0000 12/23 1200 Intake Total Output Total Balance Intake, IV Patient 160 lb Weight Weight Reported by Patient Measurement Method Allergies Coded Allergies: Cephalosporins (Severe, ANAPHYLAXIS 12/30/16) Uncoded Allergies: METAL (FLUSH, HIVES 10/02/16) Reconcile Medications Albuterol Sulfate 1.25 MG/3 ML VIAL.NEB 1 Vial INH/KENNY Q4-6 PRN cough/sob Alprazolam 0.5 MG TABLET 1 TAB PO TID ANXIETY (Reported) Azithromycin (Zithromax) 250 MG TABLET 1 DP PO AD bronchitis 2 the first day followed by 1 for days 2-5 Budesonide/Formoterol Fumarate (Symbicort 160-4.5 Mcg Inhaler) 160 MCG-4.5 MCG/ ACTUATION HFA.AER.AD 1 PUF INH BID PRN ASTHMA (Reported) Canagliflozin (Invokana) 100 MG TABLET 1 TAB PO DAILY DM (Reported) Ciclesonide (Omnaris) 50 MCG SPRAY.PUMP 2 SPRAY FREDY PRN SINUSES (Reported) Clotrimazole 10 MG KARLENE 1 TAB PO 5 TIMES A DAY PRN THRUSH (Reported) Epinephrine (Epipen) 0.3 MG/0.3 ML AUTO.INJCT 1 UNIT IM ONCE PRN ANAPHYLAXIS (Reported) Fluticasone Propionate 50 MCG/ACTUATION SPRAY.SUSP 2 SPRAY NASB PRN ALLERGIES (Reported) Hydroxyzine HCl 10 MG TABLET 1 TAB PO DAILY ITCHING (Reported) Insulin Detemir (Levemir Flextouch) 100 UNIT/ML (3 ML) INSULN.PEN 14 UNITS SC QAM DM (Reported) Levalbuterol Tartrate (Xopenex Hfa) 45 MCG/ACTUATION HFA.AER.AD 2 PUF INH Q3H PRN ASTHMA (Reported) Loratadine (Claritin) 10 MG CAPSULE 1 TAB PO TID ALLERGIES (Reported) Lovastatin (Altoprev) 60 MG TAB.ER.24H 1 TAB PO QPM CHOLESTEROL (Reported) Metformin HCl (Metformin HCl ER) 1,000 MG TAB.ER.24 1 TAB PO DAILY DM ( Reported) Metformin HCl 1,000 MG TABLET 1 TAB PO QPM DM (Reported) Methimazole 5 MG TABLET 0.5 TAB PO DAILY THYROID (Reported) Methylprednisolone. (Medrol) 4 MG TAB.DS.PK 1 DP PO AD INFLAMMATION 6 on day 1 then reduce by one tablet daily until gone Moxifloxacin HCl (Avelox) 400 MG TABLET 1 TAB PO DAILY bronchitis Pantoprazole Sodium 40 MG TABLET.DR 1 TAB PO QPM GI (Reported) Prednisone (Deltasone) 20 MG TABLET 1 TAB PO ONCE DAILY bronchitis Ramipril (Altace) 5 MG CAPSULE 1 CAP PO DAILY PROTECT KIDNEYS (Reported) Repaglinide 0.5 MG TABLET 1 TAB PO TID DM (Reported) Triage Note: PT FROM HOME C/O UPPER AND LOWER BACK PAIN SINCE 0200. PT STATES HX OF PANCREATITIS AND PANCREATIC CA AND BELIEVES THE PAIN IS FROM THAT. PT STATES SHE WENT TO A WALK IN CLINIC WHERE SHE WAS PROVIDED WITH FLEXERIL FOR BACK PAIN, TOOK IT WITHOUT RELIEF. PT IN PAIN 10/10 IN TRIAGE. PT STATES PAIN IS RADIATING TO ABD WITH BLOATING. PT DENIES URINARY S/S, NAUSEA/VOMITING. BP ELEVATED 206/78. Triage Nurses Notes Reviewed? yes LMP (ages 10-50): post menopausal ? N Is pt currently ? No Onset: Abrupt Duration: day(s): (1) Timing: single episode today Quality/Severity: cramping Severity Numbers: 7 Location: left flank, right flank, LOWER BACK Radiation: back Activities at Onset: none Prior Abdominal Problems: none Past Sexual History: Unobtainable at this time Modifying Factors: Worsens With: movement, palpation. HPI: 62-year-old female with past medical history of neuroendocrine cancer, COPD, hyperlipidemia presents for evaluation of back pain and flank pain. Patient states that the pain started around 2 AM this morning and has been getting worse. The pain is located on both sides of her lower back as well as her bilateral flanks. The pain is described as sharp. It is worse with movement or touching the area. She reports some associated nausea but no vomiting no chest pain shortness of breath fever numbness tingling bowel or bladder dysfunction. She is tolerating fluids. She has taken Flexeril without any improvement. There is no trauma or triggering event but she does note she has been doing lots of physical yard work recently. (Miguel Angel Edwards) Past History Travel History Traveled to [place] past 21 day No Medical History Any Pertinent Medical History? 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 No (Miguel Angel Edwards) Review of Systems Review of Systems Constitutional: Reports: no symptoms. EENTM: Reports: no symptoms. Respiratory: Reports: no symptoms. Cardiovascular: Reports: no symptoms. GI: Reports: see HPI, abdominal pain. Genitourinary: Reports: no symptoms. Musculoskeletal: Reports: see HPI, back pain, muscle pain, muscle stiffness. Skin: Reports: no symptoms. Neurological/Psychological: Reports: no symptoms. Hematologic/Endocrine: Reports: no symptoms. Immunologic/Allergic: Reports: no symptoms. All Other Systems: Reviewed and Negative (Miguel Angel Edwards) Physical Exam Physical Exam General Appearance: well developed/nourished, no apparent distress, alert, awake Head: atraumatic, normal appearance Eyes: Bilateral: normal appearance, PERRL, EOMI. Ears, Nose, Throat, Mouth: moist mucous membrane Neck: normal inspection, supple, full range of motion Respiratory: normal breath sounds, chest non-tender, no respiratory distress, lungs clear Cardiovascular: regular rate/rhythm, normal peripheral pulses Peripheral Pulses: 2+ radial (R), 2+ radial (L) Gastrointestinal: normal bowel sounds, soft, no organomegaly, BILATERAL FLANKS ARE TENDER TO PALPATION NO BRUISING SWELLING OR ABRASIONS Back: normal inspection, normal range of motion, LUMBAR SPINE AND PARASPINAL MUSCLES ARE TENDER TO PALPATION BILATERALLY NO STEP-OFFS OR DEFORMITIES NO BRUISING SWELLING OR ABRASIONS Extremities: normal range of motion, straight leg raised (NEGATIVE BILATERALLY), PATELLAR REFLEX 2+ BILATERALLY Neurologic/Psych: no motor/sensory deficits, awake, alert, oriented x 3, normal gait, normal mood/affect Skin: intact, normal color, warm/dry Core Measures ACS in differential dx? No Sepsis Present: No Sepsis Focused Exam Completed? No (Ken ELLISON,Miguel Angel) Progress Differential Diagnosis: appendicitis, biliary colic, bowel obstruction, cholecystitis, diverticulitis, gastritis, ischemic bowel, inflamm bowel dis, intrauterine , kidney stone, pancreatitis, peptic ulcer, PUD/GERD, perforated viscous, SBO, UTI/pyelo Plan of Care: Laboratory Tests 12/23/172052: Lactic Acid Cancelled 12/23/172028: Urine Color YEL, Urine Clarity CLEAR, Urine pH 6.0, Ur Specific [place] 1.010, Urine Protein NEG, Urine Ketones NEG, Urine Nitrite NEG, Urine Bilirubin NEG, Urine Urobilinogen 0.2, Ur Leukocyte Esterase NEG, Ur Microscopic EXAM NOT REQUIRED, Urine Hemoglobin NEG, Urine Glucose 250 H Patient is here for evaluation of bilateral low back pain relating to the bilateral flanks. No trauma. She is neurologically intact no signs or symptoms of cauda equina. Patient was medicated with IV morphine and Toradol. Labs CT scan EKG ordered. Patient is feeling much better after being medicated. She is no longer having significant pain she rates her pain as a [address] scan is unremarkable and unchanged from previous. Basic blood work is also unremarkable. Patient will be discharged home with instructions to continue her at home pain medication. She has oxycodone Flexeril. Discussed return precautions in detail patient agrees the plan Diagnostic Imaging: Viewed by Me: CT Scan. Discussed w/RAD: CT Scan. Radiology Impression: PATIENT: TOMER ESTRADA PRESENT AGE: 62 PATIENT ACCOUNT NO: [id number] : 55 LOCATION: [facility] ORDERING PHYSICIAN: Miguel Angel ELLISON SERVICE DATE: 12/23/17 EXAM TYPE: CAT - CT ABD & PELVIS W IV CONTRAST EXAMINATION: CT ABDOMEN AND PELVIS WITH CONTRAST CLINICAL INFORMATION: Diffuse low back pain and upper abdominal pain. Known metastatic carcinoid carcinoma COMPARISON: CT 09/18/2017, CT 06/11/2013 TECHNIQUE: Multidetector volumetric imaging was performed of the abdomen and pelvis following IV administration of 95 mL of Optiray 320 intravenous contrast. Sagittal and coronal reformatted images were obtained on the technologist's workstation. DLP: 298 mGy-cm FINDINGS: LUNG BASES: The visualized lung bases are unremarkable. LIVER, GALLBLADDER, AND BILIARY TREE: The liver enhances homogeneously. Multiple hypoattenuating lesions are demonstrated. These appear stable and distribution and size compared to the 2014 study allowing for technical differences between examinations. The largest area is located within the right lobe of the liver measuring approximately 3.2 cm (image 18, series 2. A large cystic areas identified within segment 4A of the liver measuring 2.4 cm. No intrahepatic biliary dilatation. The gallbladder is unremarkable with no evidence of radiopaque gallstones, gallbladder wall thickening, or obvious pericholecystic inflammatory changes. PANCREAS: There is little pancreatic tissue visualized on the current study. The portion of the head and uncinate process of the pancreas identified enhances homogeneously. SPLEEN: Unremarkable. ADRENAL GLANDS: Known bilateral adrenal adenomas, stable from prior. KIDNEYS AND URETERS: The kidneys are normal in size, shape, and attenuation. No hydronephrosis, hydroureter, or calculi seen. No perinephric stranding. BLADDER: Unremarkable. GASTROINTESTINAL TRACT: A dominant hypodense mass with rim calcification in the left upper quadrant measures 8.2 cm in size, previously 8.2 cm in size and 2014. An adjacent smaller hypodense lesion with rim calcification along the right anterior aspect measures 1.8 cm and is also stable compared to prior. Dense stool is present throughout the colon. A normal appendix is seen in the right lower quadrant. There are no dilated loops of small or large bowel. No intraabdominal free air or free fluid. ABDOMINAL WALL: No significant hernia is appreciated. LYMPH NODES: Normal. VASCULAR: Mild atherosclerotic calcific disease. Normal caliber aorta. PELVIC VISCERA: The uterus appears surgically absent. No adnexal mass. OSSEOUS STRUCTURES: Mild multilevel degenerative changes of lower thoracic and lumbar spine. IMPRESSION: No acute intra-abdominal or pelvic findings. Essentially stable exam compared to 2014 allowing for some technical differences between studies. Specific findings as detailed above. DICTATED BY: Celeste Huertas MD DATE/TIME DICTATED:12/23/172002 STUDENT LIFE COORDINATOR :CORRINE DATE/TIME TRANSCRIBED:08/11/18 / 2003 CONFIDENTIAL, DO NOT COPY WITHOUT APPROPRIATE AUTHORIZATION. Initial ED EKG: normal sinus rhythm, RBBB Prior EKG: unchanged (Miguel Angel Edwards) Departure Departure Disposition: HOME OR SELF CARE Condition: Stable Clinical Impression Primary Impression: Low back pain Qualifiers: Chronicity: acute Back pain laterality: bilateral Sciatica presence : without sciatica Qualified Code: M54.5 - Low back pain Referrals: Corrine Moore MD (PCP/Family) Additional Instructions: Rest, avoid heavy lifting bending or physical activity. Tylenol Profen for pain. Flexeril oxycodone for severe pain these may cause drowsiness. Follow up with her primary care doctor or an orthopedic doctor as soon as possible monitor your symptoms return with any concerns. Departure Forms: Customer Survey General Discharge Information (Miguel Angel Edwards) PA/ELECTRONIC PREPRESS SYSTEM OPERATOR Co-Sign Statement Statement: ED Attending supervision documentation- [] I saw and evaluated the patient. I have also reviewed all the pertinent lab results and diagnostic results. I agree with the findings and the plan of care as documented in the PA's/ELECTRONIC PREPRESS SYSTEM OPERATOR's documentation. [X] I have reviewed the ED Record and agree with the PA's/ELECTRONIC PREPRESS SYSTEM OPERATOR's documentation. [] Additions or exceptions (if any) to the PAs/ELECTRONIC PREPRESS SYSTEM OPERATOR's note and plan are summarized below: [] (Eddie Roper DO)
[2017-12-23 21:13] VITALS: BP 167/70
== END 2017-12-23 21:14 ==
LOC: ERH 17:44
PROVIDERS: Physician Assistant Medical
DX: M54.5 Low back pain (principal)
CPT/HCPCS: 74177; 81003; 93005; 93010; 96374; 96375; J1885